=== PATIENT | male | born 1955 | race Caucasian/White ===

== ENCOUNTER 2025-05-13 01:52 | Emergency (ER) | payer MEDICARE ==
[2025-05-13 02:43] LABS: APPEARANCE,URINE CLEAR (CLEAR); GLUCOSE,URINE NEGATIVE (NEGATIVE); OCCULT BLOOD,URINE NEGATIVE (NEGATIVE)
[2025-05-13 02:54] LABS: EPITHELIAL CELLS,URINE RARE
== END 2025-05-13 03:46 | disposition home or self-care (01) ==
LOC: JP.ED 01:52
DX: R33.9 Retention of urine, unspecified (principal); I10 Essential (primary) hypertension; Z79.899 Other long term (current) drug therapy
CPT/HCPCS: 51702; 51798; 81001; 99283